=== PATIENT | female | born 1995 | race African-American/Black ===

== ENCOUNTER 2019-11-06 17:35 | Emergency (ER) | payer BC ==
[2019-11-06 17:42] VITALS: BP 114/81; PULSE 67; TEMP 98.1; BMI 22.8
--- NOTE | 2019-11-06 18:56 | PDOC ---
History of Present Illness - General Chief Complaint: Pain Stated Complaint: SENT BY PCP/ABD PAIN Time Seen by Provider: 11/06/19 18:31 History Source: Patient Exam Limitations: Clinical Condition - History of Present Illness Initial Comments: 11/06/19 18:52 Patient with no significant past medical history present with complaint of 2- day history of epigastric pain and left upper quadrant pain which she described as cramping pain. Denies nausea, vomiting, diarrhea or constipation. Denies fever, chills. LMP a week ago. Denies urinary frequency, burning with urination or urinary urgency. Denies vaginal discharge or bleeding. Patient did not take anything for symptoms. Patient presented to urgent care for symptoms today and was advised to come to ED Is this a multiple visit Asthma Patient?: No Timing/Duration: other (2 days) Past History - Past Medical History Allergies/Adverse Reactions: Allergies Allergy/AdvReac Type Severity Reaction Status Date / Time No Known Allergies Allergy Verified 11/06/19 17:42 Home Medications: Ambulatory Orders Albuterol Sulfate Inhaler - [Ventolin Hfa Inhaler -] 1 - 2 inh PO Q4H PRN Famotidine [Pepcid -] 40 mg PO DAILY #7 tablet 11/06/19 Levonorgestrel-Ethin Estradiol [Larissia-28 Tablet] 1 tab PO DAILY 11/06/19 Mag Hydrox/Aluminum Hyd/Simeth [Maalox Advanced Suspension] 30 ml PO Q8H PRN # 200 ml 11/06/19 Ondansetron [Zofran *Odt*] 4 mg SL TID #12 od.tablet 11/06/19 COPD: No - Psycho Social/Smoking Cessation Hx Smoking History: Never smoked Review of Systems - Review of Systems Able to Perform ROS?: Yes Is the patient limited Nauruan proficient: No Constitutional: No: Chills, Fever, Malaise HEENTM: No: Symptoms Reported, See HPI, Eye Pain, Blurred Vision, Tearing, Recent change in vision, Double Vision, Cataracts, Ear Pain, Ocular Prothesis, Ear Discharge, Nose Pain, Nose Congestion, Tinnitus, Nose Bleeding, Hearing Loss , Throat Pain, Throat Swelling, Mouth Pain, Dental Problems, Difficulty Swallowing, Mouth Swelling, Other Respiratory: No: Symptoms reported, See HPI, Cough, Orthopnea, Shortness of Breath, SOB with Exertion, SOB at Rest, Stridor, Wheezing, Productive cough, Hemoptysis, Other Cardiac (ROS): No: Symptoms Reported, See HPI, Chest Pain, Edema, Irregular Heart Rate, Lightheadedness, Palpitations, Syncope, Chest Tightness, Other ABD/GI: Yes: Symptoms Reported, See HPI, Abdominal cramping (epigastric pain). No: Abdominal Distended, Abd. Pain w/ defecation, Blood Streaked Bowels, Constipated, Diarrhea, Difficulty Swallowing, Nausea, Poor Appetite, Poor Fluid Intake, Rectal Bleeding, Vomiting, Indigestion, Tarry Stools : No: Burning, Dysuria, Discharge, Frequency, Urgency Integumentary: No: Symptoms Reported All Other Systems: Reviewed and Negative *Physical Exam - Vital Signs Last Vital Signs Temp Pulse Resp BP Pulse Ox 98.1 F 67 18 114/81 100 11/06/19 17:39 11/06/19 17:39 11/06/19 17:39 11/06/19 17:39 11/06/19 17:39 - Physical Exam 11/06/19 18:55 GENERAL: Well developed, well nourished. Awake and alert. No acute distress. HEENT: Normocephalic, atraumatic. PERRLA, EOMI. No conjunctival pallor. Sclera are non-icteric. Moist mucous membranes. Oropharynx is clear. NECK: Supple. Full ROM. CARDIOVASCULAR: Regular rate and rhythm. No murmurs, rubs, or gallops. Distal pulses are 2+ and symmetric. PULMONARY: No evidence of respiratory distress. Lungs clear to auscultation bilaterally. No wheezing, rales or rhonchi. ABDOMINAL: Soft. Mild epigastric pain. Non-distended. No rebound or guarding. No organomegaly. Normoactive bowel sounds. MUSCULOSKELETAL Normal range of motion at all joints. SKIN: Warm and dry. Normal capillary refill. No rashes. No jaundice. NEUROLOGICAL: Alert, awake, appropriate. Gait is normal without ataxia. PSYCHIATRIC: Cooperative. Good eye contact. Appropriate mood General Appearance: Yes: Nourished, Appropriately Dressed. No: Apparent Distress ED Treatment Course - LABORATORY CBC & Chemistry Diagram: 11/06/19 18:44 11/06/19 18:44 - RADIOLOGY Radiology Studies Ordered: Category Date Time Status ABDOMEN US -LIMITED [US] Stat Ultrasound 11/06/19 18:36 Ordered Medical Decision Making - Medical Decision Making 11/06/19 18:53 Patient with no significant past medical history present with complaint of 2- day history of epigastric pain and left upper quadrant pain which she described as cramping pain. Denies nausea, vomiting, diarrhea or constipation. Denies fever, chills. LMP a week ago. Denies urinary frequency, burning with urination or urinary urgency. Denies vaginal discharge or bleeding. Patient did not take anything for symptoms. Patient presented to urgent care for symptoms today and was advised to come to ED Exam significant for mild epigastric tenderness without guarding or rebound otherwise unremarkable exam. Patient symptoms likely gastritis versus less likely cholecystitis versus gas pain. CBC, CMP and lipase level ordered. UA, urine test and urine culture lab ordered. Abdominal ultrasound ordered to rule acute pathology. Treat based on lab imaging results 11/06/19 20:47 CBC and chemistry labs unremarkable. Urine hCG negative. UA unremarkable. Abdominal ultrasound normal. Patient symptoms likely gastritis and stable for discharge on Pepcid and Maalox for abdominal discomfort and Zofran for nausea as needed with advised to decrease acidic food intake and follow-up with GI Discharge - Discharge Information Problems reviewed: Yes Clinical Impression/Diagnosis: Abdominal pain Qualifiers: Abdominal location: epigastric Qualified Code(s): R10.13 - Epigastric pain Gastritis Qualifiers: Gastritis type: unspecified gastritis Chronicity: acute Gastritis bleeding: without bleeding Qualified Code(s): K29.00 - Acute gastritis without bleeding Condition: Stable Disposition: HOME - Admission No - Additional Discharge Information Prescriptions: Famotidine [Pepcid -] 40 mg PO DAILY #7 tablet Mag Hydrox/Aluminum Hyd/Simeth [Maalox Advanced Suspension] 30 ml PO Q8H PRN # 200 ml PRN Reason: abdominal discomfort Ondansetron [Zofran *Odt*] 4 mg SL TID #12 od.tablet - Follow up/Referral Referrals: Andrew Adkins MD [Staff Physician] - - Patient Discharge Instructions Patient Printed Discharge Instructions: DI for Gastritis Additional Instructions: Your blood work and ultrasound is normal. Your symptoms likely caused by gastritis. Take prescribed medication as prescribed for pain and discomfort. Increase fluid intake. Decrease acidic foods. Follow-up referred GI doctor if no improvement in 3 days - Post Discharge Activity
[2019-11-06 19:15] LABS: BASO % 0.6 % (0-2.0); EOS % 0.6 % (0-4.5); HEMATOCRIT 39.4 % (32.4-45.2); HEMOGLOBIN 13.3 GM/dL (10.7-15.3); LYMPH % 31.7 % (8-40); MCH 28.7 pg (25.7-33.7); MCHC 33.7 g/dl (32.0-36.0); MEAN CELL VOLUME 85.3 fl (80-96); MEAN PLT VOLUME 8.2 fl (7.5-11.1); MONO % 6.4 % (3.8-10.2); NEUT % 60.7 % (42.8-82.8); PLATELET COUNT 214 K/MM3 (134-434); RBC 4.62 M/mm3 (3.60-5.2); WHITE BLOOD COUNT 7.2 K/mm3 (4.0-10.0)
[2019-11-06 19:34] LABS: URINE APPEARANCE CLOUDY; URINE BILIRUBIN NEGATIVE (NEGATIVE); URINE COLOR YELLOW; URINE GLUCOSE (UA) NEGATIVE (NEGATIVE); URINE KETONE 1+ (NEGATIVE); URINE LEUK ESTERASE NEGATIVE (NEGATIVE); URINE NITRITE NEGATIVE (NEGATIVE); URINE PROTEIN TRACE (NEGATIVE); URINE UROBILINOGEN 0.2 mg/dL (0.2-1.0)
[2019-11-06 19:41] LABS: ALBUMIN 3.4 g/dl (3.4-5.0); BILIRUBIN,TOTAL 0.3 mg/dL (0.2-1); BLOOD UREA NITROGEN 14.2 mg/dL (7-18); CALCIUM 8.8 mg/dL (8.5-10.1); CREATININE 0.9 mg/dL (0.55-1.3); POTASSIUM 3.9 mmol/L (3.5-5.1); TOT PROT 7.6 g/dl (6.4-8.2)
== END 2019-11-06 20:40 | disposition home or self-care (01) ==
LOC: JER 17:35
DX: K29.00 Acute gastritis without bleeding (principal)
CPT/HCPCS: 36415; 76705-TC; 80053; 81003; 83690; 84703; 85025; 87086; 99283-25